=== PATIENT | male | born 1975 | race Caucasian/White ===

== ENCOUNTER 2017-05-16 18:33 | Emergency (ER) | payer MEDICAID ==
[~2017-05-16] VITALS: Ht 177.8 cm; Wt 230.0 kg
[2017-05-16] MEDS ORDERED: METH10 PO (18:47)
[2017-05-16 20:44] VITALS: BP 138/86
[2017-05-16] MEDS ORDERED: IBUPROFEN 600 MG TABLET PO ONE (20:45)
== END 2017-05-16 20:58 | disposition home or self-care (01) ==
LOC: EMS 18:34
DX: S62.636A Displaced fracture of distal phalanx of right little finger, initial encounter for closed fracture (principal); F11.90 Opioid use, unspecified, uncomplicated; W50.0XXA Accidental hit or strike by another person, initial encounter; Y93.89 Activity, other specified; Y92.89 Other specified places as the place of occurrence of the external cause; Y99.8 Other external cause status
CPT/HCPCS: 99284

== ENCOUNTER 2021-11-03 20:05 | Emergency (ER) | payer MEDICAID ==
[~2021-11-03] VITALS: Ht 175.3 cm; Wt 109.1 kg
[~2021-11-03 20:05] MED LIST: METH10 PO
[2021-11-03 20:18] VITALS: BP 145/108
[2021-11-03] MEDS ORDERED: LISI30TA PO (20:19)
== END 2021-11-03 23:17 | disposition home or self-care (01) ==
LOC: EMS 20:16
DX: S09.90XA Unspecified injury of head, initial encounter (principal); F07.81 Postconcussional syndrome; F19.10 Other psychoactive substance abuse, uncomplicated; F10.20 Alcohol dependence, uncomplicated; F11.90 Opioid use, unspecified, uncomplicated; F17.290 Nicotine dependence, other tobacco product, uncomplicated; Z79.899 Other long term (current) drug therapy; Y04.0XXA Assault by unarmed brawl or fight, initial encounter; Y93.89 Activity, other specified; Y92.89 Other specified places as the place of occurrence of the external cause; Y99.8 Other external cause status
CPT/HCPCS: 99282; Z7502

== ENCOUNTER 2021-11-26 12:53 | Emergency (ER) | payer MEDICAID ==
[~2021-11-26] VITALS: Ht 177.8 cm; Wt 104.5 kg
[~2021-11-26 12:53] MED LIST changes: +LISI30TA PO
[2021-11-26] MEDS ORDERED: KETOROLAC TROMETHAMINE 60 MG/2 ML VIAL IM ONE (15:00)
[2021-11-26 15:50] VITALS: BP 148/87
== END 2021-11-26 16:07 | disposition home or self-care (01) ==
LOC: EMS 13:09
DX: S83.92XA Sprain of unspecified site of left knee, initial encounter (principal); S80.02XA Contusion of left knee, initial encounter; F11.90 Opioid use, unspecified, uncomplicated; F15.90 Other stimulant use, unspecified, uncomplicated; F17.210 Nicotine dependence, cigarettes, uncomplicated; Z79.899 Other long term (current) drug therapy; W01.0XXA Fall on same level from slipping, tripping and stumbling without subsequent striking against object, initial encounter; Y93.89 Activity, other specified; Y92.89 Other specified places as the place of occurrence of the external cause; Y99.8 Other external cause status
CPT/HCPCS: 29505; 73562; 96372; 99283; J1885

== ENCOUNTER 2021-12-18 11:12 | Emergency (ER) | payer MEDICAID ==
[~2021-12-18] VITALS: Ht 175.3 cm; Wt 108.0 kg
[2021-12-18 11:34] VITALS: BP 129/82
[2021-12-18 13:42] LABS: COVID AG,FIA SOURCE NASOPHARYNGEAL
[2021-12-18] MEDS ORDERED: DOXY-354 PO (15:11)
== END 2021-12-18 15:38 | disposition home or self-care (01) ==
LOC: EMS 11:12
DX: J18.9 Pneumonia, unspecified organism (principal); I10 Essential (primary) hypertension; F11.90 Opioid use, unspecified, uncomplicated; F17.210 Nicotine dependence, cigarettes, uncomplicated; Z79.899 Other long term (current) drug therapy; Z20.822 Contact with and (suspected) exposure to COVID-19
CPT/HCPCS: 71045; 99284